=== PATIENT | female | born 1985 | race African-American/Black ===

== ENCOUNTER 2017-11-01 20:17 | Inpatient (IN) | payer OTHER ==
[~2017-11-01] VITALS: Ht 160 cm; Wt 99.3 kg
[2017-11-01 20:45] VITALS: BP 118/79
[2017-11-01 21:38] LABS: ABSOLUTE BASOPHIL COUNT 0 /CUMM (0.0-0.2); ABSOLUTE EOSINOPHIL COUNT 0 /CUMM (0.0-0.7); ABSOLUTE GRANULOCYTE CT 7.7 /CUMM (1.4-6.5); ABSOLUTE LYMPH COUNT 1.8 /CUMM (1.2-3.4); BASOPHIL % 0.4 % (0.0-2.0); EOSINOPHIL % 0.1 % (0-5); GRANULOCYTE % 72.9 % (42.2-75.2); HEMATOCRIT 40.2 % (37-47); MEAN CORPUSCULAR HGB 29.7 PG (27.0-31.0); MEAN CORPUSCULAR HGB CONC 32.9 G/DL (33.0-37.0); MEAN CORPUSCULAR VOLUME 90.4 FL (81.0-99.0); MEAN PLATELET VOLUME 8.2 FL (7.4-10.4); PLATELET COUNT 285 /CUMM (130-400); RBC DISTRIBUTION WIDTH 14.8 % (11.5-14.5); RED BLOOD CELL CT 4.45 /CUMM (4.20-5.40); WHITE BLOOD CELL COUNT 10.6 /CUMM (4.8-10.8)
--- NOTE | 2017-11-01 21:52 | History & Physical ---
General Information and HPI MD Statement: I have seen and personally examined FAVIAN RAPP and documented this H&P. The patient is a 32 year old female at 38 weeks and 2 days gestation who presented with a chief complaint of ROM and labor pains. Source of Information: patient, old records Exam Limitations: no limitations History of Present Illness: well known to our practice c/o rom and labor pains about 8pm she is GBS negative h/o asthma and migraine LUNDY, MVP w/u by Dr. Alonso was negative. Allergies/Medications Allergies: Coded Allergies: isotretinoin (From ACCUTANE) (HIVES 11/01/17) Compliance With Home Meds: GOOD Past History manager strategic sourcing History : 1 Para: 0 Last Menstrual Period: 02/06/17 Estimated Delivery Date: 11/13/17 Past manager strategic sourcing History: none Medical History Neurological: migraine Respiratory: asthma Surgical History Pertinent Surgical History: none Past Family/Social History Psychosocial History Smoking Status: Never Smoked Review of Systems Review of Systems Constitutional: Denies: chills, fever. EENTM: Denies: blurred vision, double vision, visual changes. Cardiovascular: Denies: chest pain, palpitations. Respiratory: Denies: cough, short of breath. GI: Reports: nausea, vomiting. Denies: diarrhea. Neurological/Psychological: Denies: anxiety, depressed. Exam & Diagnostic Data Last 24 Hrs of Vital Signs/I&O vss Vital Signs Date Time Temp Pulse Resp B/P B/P Pulse O2 O2 Flow FiO2 Mean Ox Delivery Rate 11/01 2045 118/79 Obstetric Exam Wgt Gained During : 39# Pelvimetry: seems adequate Dilation (cm): 1 Effacement (%): 50 Station: -2 Membranes: SROM Fluid: thick meconium Fundal Height (cm): 40 Multiple Gestation? No Contractions: q 4 min Infant #1 - FHR Baseline: 140 Category: 1 Estimated Weight: 3800g Presentation: vtx Patient for Induction? No Physical Exam General Appearance Alert, Oriented X3, Cooperative Skin No Rashes HEENT Atraumatic Cardiovascular Regular Rate Lungs Clear to Auscultation Abdomen Soft Neurological Normal Gait, Normal Speech, Strength at 5/5 X4 Ext, Normal Tone Labs Blood Type & Rh: A pos Antibody Screen: neg Hct/Hgb & Platelets #1: 38.4/12.9/306 Hct/Hgb & Platelets #2: 37.4/11.9/299 Rubella: imm VDRL #1: nr VDRL #2: nr HbsAg: neg HIV #1: nr HIV #2 nr 1 Hr P Group B Strep: negative Initial Ultrasound: 03/28/2017 Anatomy Ultrasound: 06/23/17 normal Ultrasound for EFW: 09/15/17 63%tile Genetic Testing: CF, SMA, ff DNA neg Last 24 Hrs of Labs/[place]: Laboratory Tests 11/01/172049: CBC w Diff NO MAN DIFF REQ, RBC 4.45, MCV 90.4, MCH 29.7, MCHC 32.9 L, RDW 14.8 H, MPV 8.2, Gran % 72.9, Lymphocytes % 17.3 L, Monocytes % 9.3, Eosinophils % 0.1, Basophils % 0.4, Absolute Granulocytes 7.7 H, Absolute Lymphocytes 1.8, Absolute Monocytes 1.0 H, Absolute Eosinophils 0, Absolute Basophils 0 11/01/172014: Urine Color YEL, Urine Clarity TURBD H, Urine pH 7.0, Ur Specific [place] 1.010 , Urine Protein 30 H, Urine Ketones >=80, Urine Nitrite NEG, Urine Bilirubin NEG, Urine Urobilinogen 0.2, Ur Leukocyte Esterase TRACE H, Ur Microscopic SEDIMENT EXAMINED, Urine RBC 15-25 H, Urine WBC 10-15 H, Ur Epithelial Cells MANY H, Urine Bacteria FEW H, Urine Mucus MANY H, Urine Hemoglobin LARGE H, Urine Glucose NEG Assessment/Plan Assessment/Plan: IUP at term SROM early labor requesting epidural. H/O Asthma H/O Migraine As Ranked By This Provider Problem List: 1. Core Measures Venous Thromboembolism VTE Risk Factors Obesity No Mechanical VTE Prophylaxis d/t Early Ambulation No VTE Pharm Prophylaxis d/t LowRisk-No Interven Req'd
--- NOTE | 2017-11-02 10:52 | PN- OBGYN ---
Surgical Brief Attending Note Brief Attending Note: pt sleeping comfortable w/ epidural afeb, v/ss fht 130s moderate variability +acc no dec toco q 2 - 4 pit @7mu sve /-2 @ 8a per RN a/p P0 38wks SROM 8p, thick mec, gbs neg, on pit, and maternal status reassuring -cont current mgmt -peds at delivery
--- NOTE | 2017-11-02 12:35 | PN- OBGYN ---
Surgical Brief Attending Note Brief Attending Note: pt c/o vaginal pressure afeb, v/ss fht 130s moderate variability +acc no dec toco q 2 - 4 pit @ 9mu sve /-2 P0 39wks srom 8p, mec stained, gbs neg, on pit, and maternal status reassuring -cont pit per protocol -peds at delivery
--- NOTE | 2017-11-02 18:03 | PN- OBGYN ---
Surgical Brief Attending Note Brief Attending Note: pt c/o incr vag pressure t - 100.5 fht 150 mod variability + acc no dec toco q 3 sve 8/100/-2 w/ caput -cont current mgmt
[2017-11-02 19:36] LABS: ABSOLUTE BASOPHIL COUNT 0 /CUMM (0.0-0.2); ABSOLUTE EOSINOPHIL COUNT 0 /CUMM (0.0-0.7); ABSOLUTE GRANULOCYTE CT 13.6 /CUMM (1.4-6.5); ABSOLUTE LYMPH COUNT 1.1 /CUMM (1.2-3.4); ABSOLUTE MONOCYTE COUNT 1.3 /CUMM (0.10-0.60); BASOPHIL % 0 % (0.0-2.0); EOSINOPHIL % 0 % (0-5); HEMATOCRIT 36.2 % (37-47); MEAN CORPUSCULAR HGB 30.3 PG (27.0-31.0); MEAN CORPUSCULAR HGB CONC 33.6 G/DL (33.0-37.0); MEAN PLATELET VOLUME 8.1 FL (7.4-10.4); PLATELET COUNT 236 /CUMM (130-400); RBC DISTRIBUTION WIDTH 14.8 % (11.5-14.5); RED BLOOD CELL CT 4.02 /CUMM (4.20-5.40)
--- NOTE | 2017-11-02 19:47 | PN- OBGYN ---
Surgical Brief Attending Note Brief Attending Note: pt c/o vag pressure t - 100.9 fht 160s moderate variability +acc occ son dec toco q 2-4 pit@12mu sve 8/-1 P0 39wks srom 8p 11/01, gbs neg, mec stained, on pit, fever likely from chorio, and maternal status overall reassuring -cont tyl, a / g -cont pit -monitoring
--- NOTE | 2017-11-02 23:54 | PN- OBGYN ---
Surgical Brief Attending Note Brief Attending Note: pt c/o desire to push afeb, v/ss fht 150s moderate variability +acc occ mild son dec toco q 2-3 pit @ 14mu sve 9/100/0 cont current mgmt
--- NOTE | 2017-11-03 01:13 | PN- OBGYN ---
Surgical Brief Attending Note Brief Attending Note: to pt's room to evaluate fht. pt w/ recurrent late decels. ctx q 1-4 w/ coupling. sve ant lip/ +1. pit@ 18mu. will decrease pitocin per protocol and cont monitoring.
--- NOTE | 2017-11-03 07:07 | Labor & Delivery Summary ---
Delivery Summary Vaginal Delivery: Vaginal: spontaneous Episiotomy/Lacerations: Episiotomy/Lacerations: vaginal - right Type: vaginal Repair: 2-0 clovis Anesthesia: local, epidural Placenta: Placenta: spontanteous, normal, 3 vessel Anesthesia: block Cord PH Value: 7.29/ 7.26 Baby's Weight: 7#2 Apgars - 1 Min: 1 Apgars - 5 Min: 7 Additional Comments: pt FD / +1 , caput at +2, and pushing w/ epidural. Controlled of live male, apg . Head del over intact perineum from DOA. Mouth and nose bulb suctioned. Body delivered w/o difficulty. Thick mec noted. COrd clamped and cut. Infant to peds. Cord gases sent. 3vc plac del spont intact. Fundus contracted. EBL 300cc. Right vag lac repaired usual fashion w/ additional local 10cc. Pt jb well. Baby w/ mom.
--- NOTE | 2017-11-03 11:43 | PN- OBGYN ---
Surgical Brief Attending Note Brief Attending Note: Day of Delivery Patient "feels great", very happy. Mild cramping, mild lochia. +void. Eating. afebrile, VS normal Fundus - firm, NT Perineum - intact, dry Extr - benign A: stable s/p P: routine care requests circumcision for "Javier"
[2017-11-04 09:15] LABS: ABSOLUTE BASOPHIL COUNT 0 /CUMM (0.0-0.2); ABSOLUTE EOSINOPHIL COUNT 0 /CUMM (0.0-0.7); ABSOLUTE GRANULOCYTE CT 13.5 /CUMM (1.4-6.5); ABSOLUTE MONOCYTE COUNT 1.1 /CUMM (0.10-0.60); BASOPHIL % 0.3 % (0.0-2.0); EOSINOPHIL % 0.3 % (0-5); HEMATOCRIT 35.7 % (37-47); MEAN CORPUSCULAR HGB 30.5 PG (27.0-31.0); MEAN CORPUSCULAR HGB CONC 33.8 G/DL (33.0-37.0); MEAN CORPUSCULAR VOLUME 90.2 FL (81.0-99.0); MEAN PLATELET VOLUME 8.7 FL (7.4-10.4); PLATELET COUNT 262 /CUMM (130-400); RBC DISTRIBUTION WIDTH 15.2 % (11.5-14.5); RED BLOOD CELL CT 3.95 /CUMM (4.20-5.40); WHITE BLOOD CELL COUNT 16.7 /CUMM (4.8-10.8)
[2017-11-04 10:03] LABS: GRANULOCYTE % 80.6 % (42.2-75.2)
--- NOTE | 2017-11-04 12:23 | PN- OBGYN ---
Surgical Brief Attending Note Brief Attending Note: PPD#1 pt is ambulating, feels well, tolerate diet, void without difficulties. PE: VSS general NAD CV RRR Lungs CTA B/L abdomen: soft, nontender, uterus firm, fundus below umbilicus. lochia mild Ext: DCT (-) A/P: 32 yo, s/p ,PPD#1 1. encourage ambualtion and breastfeeidng. 2. pain management as needed 3.RT PP care
--- NOTE | 2017-11-04 16:51 | PN- OBGYN ---
Surgical Brief Attending Note Brief Attending Note: Informed by nurse that road machinery inspector will transfer the baby to [place] for further evaluation. pt request to be discharged. discharge instructions given to pt, she understand. advise pt to schedule f/u appt. in 2 wks and 6 wks. she understand and agreed
== END 2017-11-04 17:30 | DRG 775 ==
LOC: CBCO 20:17 → GNO 20:36
PROVIDERS: Obstetrics & Gynecology
PROC: 0HQ9XZZ Repair Perineum Skin, External Approach (ICD-10-PCS; principal; 2017-11-03)
PROC: 10E0XZZ Delivery of Products of Conception, External Approach (ICD-10-PCS; 2017-11-03)
DX: O70.0 First degree perineal laceration during delivery (principal); Z3A.38 38 weeks gestation of pregnancy; Z37.0 Single live birth
CPT/HCPCS: GNOP; GNOS; 36415; 81001; 82436; 87086; J0131; J0290; J1580; J2405; J7120